=== PATIENT | male | born 1995 | race Caucasian/White ===

== ENCOUNTER 2025-09-17 09:09 | Emergency (ER) | payer OTHER, SELFPAY ==
[2025-09-17 09:09] VITALS: BP 124/73; PULSE 74; RESP 16; TEMP 36.7; O2SAT 100; BMI 24.0
--- NOTE | 2025-09-17 09:33 | EX.ED.GENINJ ---
HPI History of Present Illness Chief Complaint: Chest Other Narrative Narrative: Patient is a 29-year-old male presenting to the emergency department for a possible foreign body in his chest wall. Patient states that he was working this morning and hit a piece of metal with a hammer and a small piece of the metal came up and struck him in the chest. Patient denies any chest pain or shortness of breath. States his tetanus shot was probably more than 10 years ago. States he is in no significant pain came here at his family's request to rule out the piece of metal still being in his chest wall. Denies any other injuries. PFS PFS Allergy/AdvReac Type Severity Reaction Status Date / Time No Known Allergies Allergy Verified 09/17/25 09:09 Social History Smoking Status: Current some day smoker tobacco type: cigarettes ROS ROS ED ROS Narrative See HPI EXAM Physical Exam Narrative Exam Narrative: Vital signs: Reviewed General: Alert and orientedx3. No acute distress HEENT: Head is normocephalic and atraumatic, sinuses nontender, pupils equal round and reactive. Nares are patent. Oropharynx and throat exams normal. Neck: Supple without lymphadenopathy nontender Cardiovascular: Regular rate and rhythm, no murmurs. No rubs or gallops. Normal S1 and S2 Respiratory: Clear to auscultation bilaterally. No wheezes, rales, rhonchi Chest: Puncture wound to left lower chest wall. No active bleeding. No foreign body seen on wound exploration. Abdominal: Soft and nontender. Normal bowel sounds. No guarding or rebound. Nonsurgical abdomen Extremities: No tenderness. No bruising. Normal range of motion. Normal sensation. The rest of the physical exam is unremarkable Const Vital Signs: 09/17/25 09:09 09/17/25 10:51 Temperature 98.0 F 97.8 F Temperature Source Oral Pulse Rate 74 64 Respiratory Rate 16 18 Blood Pressure 124/73 H 134/78 H Blood Pressure Mean 90 96 Pulse Ox 100 99 Oxygen Delivery Method Room Air MDM MDM MDM Narrative Medical decision making narrative: Patient is a 29-year-old male presenting to the emergency department for a possible foreign body in his chest wall. Patient was seen and examined. Vitals are stable. Patient resting bed comfortably no acute distress. On wound exploration there is no obvious foreign body felt or seen. Small puncture wound. A [id number] ultrasound was done which shows no obvious foreign body. Chest x-ray obtained. On my review there appears to be a small radiopaque foreign body on the left sided chest wall. Radiology read with a tiny radiopaque foreign body seen within the deep soft tissues overlying the lower medial aspect of the left hemithorax. No pneumothorax. Adacel updated. Wound was copiously irrigated by myself. I did not see the foreign body on irrigation of the wound. Explained to the patient that given it is not causing an pain or deeper injuries including pneumothorax we will leave the foreign body there. It was not able to be expelled on manipulation of the wound and I do not think the risks of making a bigger incision to cut it out outweighs the benefits given he is asymptomatic. Patient was given wound care instructions for home including return to the emergency department with any redness, drainage or warmth. Patient discharged from the Emergency Department. I do not feel that the patient's evaluation reveals any acute reason for admission at this time. I instructed them to either follow-up with their primary care physician or promptly return to the Emergency Department for reevaluation should symptoms worsen or new symptoms develop. I explained what symptoms would indicate the need to return to the emergency department. Shared decision making was used. The patient voiced understanding of the treatment plan and is agreeable with it. Clinical impression Foreign body in soft tissue History & Record Review Discussion w/independent historian: Patient Radiography Chest X-Ray - ED: 2 View, Read by ED Physician, Normal, No Acute Disease and - (Small radiopaque foreign body left-sided lower chest wall) Diagnostic Testing: Clinical Impression(s) from Imaging Studies Chest X-Ray 09/17/25 09:50 IMPRESSION: Tiny radiopaque foreign body seen within the deep soft tissues overlying the lower medial aspect of the left hemithorax. Reading Location: [id number] Discharge Plan Triage Chief Complaint: Chest Other ED Provider: Lazara Aceves Dx/Rx/DC Orders Clinical Impression: Foreign body (FB) in soft tissue Instructions: ED Foreign Body Soft Tissue Primary Care Provider: Akbar Coppola Referrals: Akbar Coppola, [Primary Care Provider, Family Practice] - As soon as possible Activity Restrictions/Additional Instructions: As discussed watch for signs of infection including redness, drainage or warmth around the area. Your evaluation in the Emergency Department did not reveal any acute reason for admission. However, I want to emphasize that you may be early in the course of a disease process or illness even if it is not present. For this reason you should follow-up within 24 hours for reevaluation with either your primary care physician or if necessary back here in the Emergency Department. You should return to the Emergency Department immediately if your symptoms worsen or new symptoms develop. Print Language: Lao Disposition Disposition: Home, Self Care Discharge Date/Time: 09/17/25 10:53
--- NOTE | 2025-09-17 09:50 | RAD_ITS ---
PROCEDURE: RAD/Chest PA and Lateral
[2025-09-17 10:51] VITALS: BP 134/78; PULSE 64; RESP 18; TEMP 36.6; O2SAT 99
== END 2025-09-17 10:53 | disposition home or self-care (01) ==
PROVIDERS: Emergency Provider Student in an Organized Health Care Education/Training Program; PCP Family Medicine; Visit Provider Student in an Organized Health Care Education/Training Program
DX: S21.142A Puncture wound with foreign body of left front wall of thorax without penetration into thoracic cavity, initial encounter (principal); W20.8XXA Other cause of strike by thrown, projected or falling object, initial encounter; Y99.0 Civilian activity done for income or pay; F17.210 Nicotine dependence, cigarettes, uncomplicated; Z23 Encounter for immunization
CPT/HCPCS: 71046; 90471; 90715; 96372; 99282